=== PATIENT | female | born 2000 | race Caucasian/White ===

== ENCOUNTER 2020-07-13 19:23 | Inpatient (IN) ==
[2020-07-13 20:35] LABS: Urine Appearance Cloudy; Urine Bilirubin Negative (Negative); Urine Blood Negative (Negative); Urine Color Straw; Urine Glucose Negative (Negative); Urine Ketones Negative (Negative); Urine Nitrite Negative (Negative); Urine Protein Negative (Negative); Urine Specific Gravity 1.008 (1.010-1.030); Urine Urobilinogen Negative (Negative)
[2020-07-13 20:36] LABS: Urine Benzodiazepine Screen None Detected (None Detect); Urine Cannabinoids Screen None Detected (None Detect); Urine Opiates Screen None Detected (None Detect)
[2020-07-13 20:53] LABS: ABS Monocytes 0.7 10^3/ul (0-0.8); ABS Neutrophils 6.8 10^3/ul (1.5-7.7); Eosinophil % 0.2 %; Hematocrit 38 % (35-47); Hemoglobin 12.8 g/dL (12.0-16.0); Lymphocyte % 20.4 %; Mean Corpuscular HGB Conc 33 g/dL (31-36); Mean Corpuscular Hemoglobin 29 pg (27-31); Mean Corpuscular Volume 87 fL (80-97); Mean Platelet Volume 7.8 fL (7.4-10.4); Platelet Count 233 10^3/uL (150-450); Red Blood Count 4.42 10^6 /uL (3.70-4.87); Red Cell Distribution Width 14 % (10-15); White Blood Count 9.6 10^3/uL (3.5-10.8)
[2020-07-13 21:21] LABS: ALT 8 U/L (7-52); AST 22 U/L (13-39); Acetaminophen < 15 mcg/mL; Albumin 4.2 g/dL (3.2-5.2); Albumin/Globulin Ratio 1.7 (1-3); Alcohol, S < 10 mg/dL (<10); Alkaline Phosphatase 53 U/L (34-104); Anion Gap 8 mmol/L (2-11); BUN/Creatinine Ratio 9.4 (8-20); Blood Urea Nitrogen 12 mg/dL (6-24); CO2 Carbon Dioxide 21 mmol/L (22-32); Calcium 8.8 mg/dL (8.6-10.3); Chloride 109 mmol/L (101-111); EGFR African American 65.6 (>60); EGFR Non-African American 54.2 (>60); Globulin 2.5 g/dL (2-4); Glucose 116 mg/dL (70-100); Potassium 3.1 mmol/L (3.5-5.0); Salicylate < 2.50 mg/dL (<30); Sodium 138 mmol/L (135-145); Total Protein 6.7 g/dL (6.4-8.9)
[2020-07-13 21:27] LABS: HCG Pregnancy < 0.60 mIU/mL
[2020-07-13 21:35] LABS: TSH Ultra Thyroid Stim Horm 0.49 mcIU/mL (0.34-5.60)
[2020-07-13] MEDS ORDERED: Potassium Chlor 20 meq TAB.ER PO ONE (22:41)
[2020-07-14] MEDS ORDERED: Al Hydrox/Mg Hydrox/Simet LIQ 30 ML UDC PO PRN (00:24)
[2020-07-14] MEDS ORDERED: Nicotine GUM 2MG FRUIT FLAVOR PO PRN (01:00)
[2020-07-14] MEDS: Vitamin THERAPEUTIC TAB PO SCH (13:58)
[2020-07-14] MEDS: CMC:Lamotrigine XR 300 mg TAB (NF) PO SCH (14:08)
[2020-07-15] MEDS: CMC:Lamotrigine XR 300 mg TAB (NF) PO SCH (09:20)
[2020-07-15] MEDS: Vitamin THERAPEUTIC TAB PO SCH (09:20)
[2020-07-16] MEDS: Vitamin THERAPEUTIC TAB PO SCH (08:52)
[2020-07-16] MEDS: CMC:Lamotrigine XR 300 mg TAB (NF) PO SCH (08:52)
[2020-07-16] MEDS: Methylphenidate ER 18 mg TAB PO SCH (15:05)
[2020-07-17] MEDS: CMC:Lamotrigine XR 300 mg TAB (NF) PO SCH (08:58)
[2020-07-17] MEDS: Methylphenidate ER 18 mg TAB PO SCH (08:59)
[2020-07-17] MEDS: Vitamin THERAPEUTIC TAB PO SCH (09:02)
[2020-07-18] MEDS: CMC:Lamotrigine XR 300 mg TAB (NF) PO SCH (08:37)
[2020-07-18] MEDS: Methylphenidate ER 18 mg TAB PO SCH (08:38)
[2020-07-18] MEDS: Vitamin THERAPEUTIC TAB PO SCH (08:39)
[2020-07-18 10:14] VITALS: BP 97/55
== END 2020-07-18 14:05 | disposition home or self-care (01) | DRG 755 ==
LOC: ED 19:23 → BSU 22:35 → ED 07-14 00:02 → BSU 07-15 18:14
PROVIDERS: ADMIT Psychiatry & Neurology Psychiatry; ATTEND Psychiatry & Neurology Psychiatry